=== PATIENT | male | born 1980 | race Caucasian/White ===

== ENCOUNTER 2019-04-16 20:25 | Emergency (ER) | payer OTHER ==
--- NOTE | 2019-04-16 21:12 | RAD ---
Exam: Right elbow 2 views: HISTORY: Concern for foreign body. FINDINGS: Anteriorly on the lateral view there is a thin pointed metal density small foreign body probably repr esenting a needle or small pin. This foreign body is not definitively seen on the AP view, probably overlying the bony structures. IMPRESSION: Small thin metal density foreign body anteriorly in the soft tissues at the level of the elbow antecu bital fossa region
== END 2019-04-16 21:08 | disposition home or self-care (01) ==
LOC: MADERS 20:25
DX: S40.851A Superficial foreign body of right upper arm, initial encounter (principal); F17.210 Nicotine dependence, cigarettes, uncomplicated; W45.8XXA Other foreign body or object entering through skin, initial encounter

== ENCOUNTER 2021-01-05 14:55 | Emergency (ER) | payer SELFPAY ==
[2021-01-05] MEDS ORDERED: Clindamycin 150 MG CAP ONE (15:20)
== END 2021-01-05 15:24 | disposition home or self-care (01) ==
LOC: MADERS 14:55
DX: L03.113 Cellulitis of right upper limb (principal); F17.210 Nicotine dependence, cigarettes, uncomplicated
CPT/HCPCS: 99283

== ENCOUNTER 2021-04-04 23:41 | Emergency (ER) | payer SELFPAY ==
[2021-04-05] MEDS ORDERED: Sulfameth/Trimethoprim DS 800-160mg TAB ONE (00:05)
== END 2021-04-05 00:15 | disposition home or self-care (01) ==
LOC: MADERS 23:41
DX: L03.116 Cellulitis of left lower limb (principal); F17.210 Nicotine dependence, cigarettes, uncomplicated; Z71.6 Tobacco abuse counseling
CPT/HCPCS: 99406

== ENCOUNTER 2023-06-26 18:29 | Emergency (ER) | payer OTHER, SELFPAY ==
[2023-06-26] MEDS ORDERED: traMADol HCl 50 MG TAB ONE ×2 (19:29)
[2023-06-26] MEDS ORDERED: Bacitracin 1 PK ONE (19:29)
== END 2023-06-26 19:50 | disposition home or self-care (01) ==
LOC: MADERS 18:29
DX: S29.011A Strain of muscle and tendon of front wall of thorax, initial encounter (principal); F17.210 Nicotine dependence, cigarettes, uncomplicated; W01.10XA Fall on same level from slipping, tripping and stumbling with subsequent striking against unspecified object, initial encounter

== ENCOUNTER 2025-07-12 12:14 | Emergency (ER) | payer SELFPAY ==
[2025-07-12 13:22] LABS: #Basophils 0.2 thou/uL (0.0-0.2); #Eosinophils 1.2 thou/uL (0.0-0.7); #Lymphocytes 2.5 thou/uL (1.20-3.40); #Monocytes 0.7 thou/uL (0.11-0.59); #Neutrophils 5.5 thou/uL (1.40-6.50); %Basophils 1.8 % (0.0-1.0); %Eosinophils 12.3 % (0.0-10.0); %Lymphocytes 24.6 % (21.0-51.0); %Monocytes 7.0 % (0.0-10.0); %Neutrophils 54.4 % (42.0-75.0); Hematocrit 50.5 % (42.0-52.0); Hemoglobin 16.4 g/dL (14.0-18.0); Mean Corpuscular Hemoglobin 28.8 pg (27.0-31.0); Mean Corpuscular Volume 88.7 fl (78.0-98.0); Platelet Count 352 10x3/uL (130-400); Red Blood Cell (RBC) Count 5.69 mill/uL (4.70-6.10); White Blood Cell (WBC) Count 10.1 10x3/uL (4.8-10.8)
[2025-07-12 13:38] LABS: Troponin I Less than 0.010 ng/mL (< 0.028)
[2025-07-12 13:59] LABS: ALT (SGPT) 41 U/L (Less than 45); AST (SGOT) 26 U/L (11-34); Albumin 4.6 g/dL (3.1-4.5); Alkaline Phosphatase 75 U/L (40-110); Anion Gap 16 mmol/L (10-20); BUN (Urea Nitrogen) 11 mg/dL (8.9-20.6); Bilirubin, Total 0.9 mg/dL (0.3-1.2); Calc. Creatinine Clearance 0 mL/min (70-130); Calcium 9.1 mg/dL (7.8-10.44); Carbon Dioxide 25 mmol/L (22-29); Chloride 103 mmol/L (98-107); Globulin 3.2 g/dL (2.4-3.5); Glucose 88 mg/dL (70-105); Lipase 29 U/L (8-78); Potassium 4.0 mmol/L (3.5-5.1); Sodium 140 mmol/L (136-145)
[2025-07-12] MEDS ORDERED: Mag-Al 1200 mg/1200 mg/30 ML UDCUP ONE (14:29)
[2025-07-12] MEDS ORDERED: Lidocaine Viscous Sol 2% 15 ml UD Cup ONE (14:30)
== END 2025-07-12 14:45 | disposition home or self-care (01) ==
LOC: MADERS 12:14
DX: R07.81 Pleurodynia (principal); Z87.891 Personal history of nicotine dependence
CPT/HCPCS: 71046; 80053; 83690; 84484; 85025; 93005